=== PATIENT | female | born 1995 | race Caucasian/White ===

== ENCOUNTER → 2020-05-30 | Outpatient (CLI) | payer OTHER ==
--- NOTE | 2020-06-06 13:31 | REP ---
BILATERAL MAMMOGRAM WITH 3D TOMOSYNTHESIS AND LEFT BREAST ULTRASOUND HISTORY: Small superficial bump left nipple. Family history of breast cancer at age 35 in paternal grandmother. [facility] [address] lifetime risk of breast cancer 22.8%. TECHNIQUE: MLO and CC views of both breasts performed with 3D tomosynthesis. FINDINGS: Breast parenchyma is extremely dense in a heterogeneous pattern, symmetrically bilaterally. [place] breast density is D. There is no evidence of mass or architectural distortion bilaterally. No suspicious clusters of microcalcifications are seen. Real-time sonographic evaluation of the left nipple is performed at the site of the reported bump on the nipple. The ultrasound shows a superficial eccentric 2-mm hypoechoic area very superficially just beneath the skin of the nipple. This is felt to represent a mildly prominent Cooney gland opening at the Morgagni's tubercle. I cannot exclude some degree of obstruction of the Cooney gland. Clinical correlation and follow-up are recommended. IMPRESSION: ACR 2 benign. Very dense breast parenchyma limits evaluation of the mammogram. There is no mammographic evidence of mass, architectural distortion, or clustered microcalcifications. By ultrasound at the site of the superficial bump on the left nipple, there is an eccentric superficial protuberance about 2-3 mm in diameter of the nipple. This probably represents a mildly prominent Cooney gland opening at the Morgagni's tubercle. I cannot exclude some degree of obstruction of the Cooney gland. There is no underlying discrete cystic or solid mass. Clinical correlation and follow-up recommended. Given the patients family history and elevated lifetime risk of breast cancer 22.8%, I would recommend supplemental screening MRI of the breasts with and without contrast. This mammogram was interpreted with the ai8d of an FDA approved computer-aided detection system. The patient states her last clinical breast exam was 10/2019. Patient letter: 2. MTDCyndy
== END ==
LOC: M WHC 09:54
PROVIDERS: ATTEND Physician Assistant
DX: N63.20 Unspecified lump in the left breast, unspecified quadrant (principal)
CPT/HCPCS: 76642; 77066; G0279

== ENCOUNTER → 2020-08-21 | Outpatient (CLI) | payer OTHER | LOC: M PLALAB 10:22 | PROVIDERS: ATTEND Surgery | DX: Z13.79 Encounter for other screening for genetic and chromosomal anomalies (principal) ==

== ENCOUNTER → 2020-10-18 | Outpatient (CLI) | payer OTHER ==
[~2020-10-18] MED LIST: PROHANCE 279.3MG/ML 15ML VIAL As Ordered ONE
--- NOTE | 2020-10-18 17:01 | REP ---
INDICATION: DISCHARGE FROM RT NIPPLE, FM HX OF BC. COMPARISON: Comparison left breast sonography and bilateral mammography 30 May 2020. TECHNIQUE: Three Jaqueline MRI imaging was performed with a dedicated breast coil. Axial, coronal, and sagittal T1 and T2 weighted scans were obtained with and without fat saturation in the usual fashion. The study includes dynamically acquired post gadolinium-enhanced imaging with image subtraction. Maximum intensity projection and multi planar reformation imaging is included as well. This study is interpreted with the aid of [place], an FDA approved computer aided detection (CAD) software program, on a dedicated breast MRI workstation. The gadolinium enhancement dose is 12 mL of intravenous ProHance. FINDINGS: There is a extreme amount of fibroglandular tissue bilaterally corresponding with the mammographic pattern. There is moderate background parenchymal enhancement. There is no evidence of axillary lymphadenopathy or significant breast cystic change. High-resolution pre and post-contrast T1 and T2 weighted scans show no suspicious morphologic abnormality in either breast. Dynamically acquired sequential postcontrast images show no suspicious area of enhancement and washout kinetics in either breast to suggest malignancy. Subtraction images show no additional abnormality No subareolar or nipple abnormality is appreciated. IMPRESSION: BI-RADS category 1 negative bilateral breast MRI findings. <Electronically signed by Onel Dunbar > 10/18/20 [id number]
== END ==
LOC: M RAD 14:47
PROVIDERS: ATTEND Surgery
DX: Q83.9 Congenital malformation of breast, unspecified (principal); R92.2 Inconclusive mammogram; Z80.3 Family history of malignant neoplasm of breast; N64.52 Nipple discharge
CPT/HCPCS: A9576; C8908

== ENCOUNTER 2021-06-12 09:37 | Day surgery (SDC) | payer OTHER ==
[~2021-06-12] VITALS: Ht 162.6 cm; Wt 61.1 kg
[~2021-06-12 09:37] MED LIST changes: +ACETAMINOPHEN *IV* 1,000 MG IV ONE; +EMLA CREAM 5GM TUBE (LIDOCAINE/PRILOCAINE) TOP PRN; +LIDOCAINE 1% MDV 20ML VIAL SQ PRN; +LR 1,000 ML IV ONE; -PROHANCE 279.3MG/ML 15ML VIAL As Ordered ONE
[2021-06-12] MEDS ORDERED: dexameTHASONE 4 MG/ML 1ML VIAL (J1100 PER 1MG) As Ordered ONE (10:00)
[2021-06-12] MEDS ORDERED: fentaNYL 100 MCG/2 ML INJECTION (J3010) As Ordered ONE ×2 (10:00→11:09)
[2021-06-12] MEDS ORDERED: LIDOCAINE 2% 100MG/5ML SDV (FOR ANES.) As Ordered ONE ×2 (10:00→10:59)
[2021-06-12] MEDS ORDERED: MIDAZOLAM INJ 2MG/2ML VIAL (J2250 PER 1MG) As Ordered ONE (10:00)
[2021-06-12] MEDS ORDERED: ONDANSETRON 4MG/2ML VIAL As Ordered ONE (10:01)
[2021-06-12] MEDS ORDERED: KETOROLAC 60MG 2ML VIAL As Ordered ONE (10:05)
[2021-06-12 10:22] LABS: HEMATOCRIT 39.3 % (36.0-47.0); HEMOGLOBIN 13.3 g/dl (12.0-15.5)
[2021-06-12] MEDS ORDERED: propofoL 200 MG/20 ML VIAL As Ordered ONE ×2 (10:42→12:40)
[2021-06-12] MEDS ORDERED: PHENYLephrine 500MCG 5ML (100MCG/ML) SYRINGE As Ordered ONE (10:56)
[2021-06-12] MEDS ORDERED: LIDOCAINE W/EPINEPHRINE 1% 20ML VIAL As Ordered ONE (11:43)
[2021-06-12] MEDS ORDERED: IODINE STRONG SOLN 15 ML BTL As Ordered ONE (11:43)
[2021-06-12] MEDS ORDERED: PARAGARD T380-A INTRAUTERINE DEVICE As Ordered ONE (11:52)
[2021-06-12] MEDS ORDERED: ACETAMINOPHEN 1000MG 100ML IV BTL (OFIRMEV) (J0131 PER 10MG) As Ordered ONE (12:33)
--- NOTE | 2021-06-12 13:03 | ROOPDOC ---
[facility] Report Of Operation Report of Operation DATE OF PROCEDURE: 06/12/21 PREPROCEDURE DIAGNOSES: CERVICAL Dysplasia, CIN3 POSTPROCEDURE DIAGNOSES: Same as above PROCEDURE PERFORMED: LEEP, ECC SURGEON: Anuel Contreras MD MOTION PICTURE CAMERAMAN: None ANESTHESIA: conscious sedation. ESTIMATED BLOOD LOSS: Approximately 10mL. COMPLICATIONS: none REMARKS: Cervical block with 10ml OF 1% Lidocaine with epinephrine, UOP 100mg, IVF: 700ml. FINDINGS: Acetowhite changes noted at 4-6 OCLOCK SPECIMENS REMOVED: Cervical biopsy and endocervical curretings PROCEDURE NOTE: DESCRIPTION OF PROCEDURE: The patient was taken to the operating room where sedation was found to be adequate. She was then placed in the high lithotomy position with candy-cane stirrups. An examination under anesthesia was performed with the findings as noted above. The patient was prepped and draped in the usual sterile fashion. An operative sterile ceramic speculum was placed into the vagina with good visualization of the cervix. Total of 10 mL of Lidocaine with epinephrine was injected for a cervical block. A Loop electrosurgical excision procedure performed with two passes for removal of entire transformation zone followed by an endocervical curettage with minimal amount of tissue. Hemostasis was obtained with rollerball cautery on cervical bed. The vaginal speculum was removed. Pt was returned to the supine position. She was awaken from anesthesia and taken to the recovery room in stable condition. CHELLE SYLVESTER MD Jun 12, 2021 13:03
[2021-06-12 14:03] VITALS: BP 107/60
== END 2021-06-12 14:10 | disposition home or self-care (01) ==
LOC: M SDC 09:37
PROVIDERS: ATTEND Obstetrics & Gynecology
DX: N72 Inflammatory disease of cervix uteri (principal)
CPT/HCPCS: 36415; 57522; 85014; 85018; 86850; 86900; 86901; 88305; 88307; J0131; J1100; J1885; J2250; J2405; J3010

== ENCOUNTER 2022-06-30 10:07 | Emergency (ER) | payer OTHER ==
[~2022-06-30] VITALS: Ht 162.6 cm; Wt 67.3 kg
[2022-06-30] MEDS ORDERED: PARA1IUD IU (10:15)
[2022-06-30] MEDS ORDERED: ACETAMINOPHEN TAB 650MG DOSE (2X325MG) PO ONE (11:25)
[2022-06-30] MEDS ORDERED: KETOROLAC 60MG 2ML VIAL IM ONE (11:25)
[2022-06-30 12:26] VITALS: BP 108/74
[2022-06-30] MEDS ORDERED: KETO10TAB PO (12:27)
[2022-06-30] MEDS ORDERED: CYCL-707 PO (12:27)
== END 2022-06-30 12:35 | disposition home or self-care (01) ==
LOC: M ED 10:07
DX: S13.4XXA Sprain of ligaments of cervical spine, initial encounter (principal); M62.830 Muscle spasm of back; Z79.899 Other long term (current) drug therapy
CPT/HCPCS: 96372; 99283; J1885